=== PATIENT | female | born 1965 | race Caucasian/White ===

== ENCOUNTER 2022-01-03 14:34 | Emergency (ER) | payer OTHER ==
[~2022-01-03] VITALS: Ht 160 cm; Wt 90.9 kg
[~2022-01-03 14:34] MED LIST: ATOR40TA28 PO; FAMO20 PO; GABA-1216 PO; MIRALAX PO; MULT-29 PO
[2022-01-03] MEDS ORDERED: PANT40TA54 PO (16:48)
[2022-01-03] MEDS ORDERED: PARO30TA60 PO (16:48)
[2022-01-03] MEDS ORDERED: ASPI-1026 PO (16:48)
[2022-01-03] MEDS ORDERED: GABA600T10 PO (16:48)
[2022-01-03] MEDS ORDERED: MULT-248 PO (16:48)
[2022-01-03 17:39] VITALS: BP 138/97
[2022-01-03 17:52] LABS: APPEARANCE,URINE HAZY (CLEAR); BILIRUBIN,URINE NEGATIVE (NEGATIVE); GLUCOSE, URINE (UA) NEGATIVE (NEGATIVE); KETONES,URINE NEGATIVE (NEGATIVE); LEUKOCYTE ESTERASE ,URINE LARGE (NEGATIVE); NITRATE,URINE NEGATIVE (NEGATIVE); OCCULT BLOOD,URINE LARGE (NEGATIVE); PH,URINE 5.5 (5.0-8.0); PROTEIN,URINE 30-70 mg/dL (NEGATIVE); UROBILINOGEN,URINE <=1.0 mg/dL (<=1.0)
[2022-01-03 18:03] LABS: BACTERIA,URINE Rare /HPF (None Seen); RBC,URINE 26-50 /HPF (0-2); SQUAMOUS EPITHELIAL CELL,UR Few /LPF (None Seen); WBC,URINE 26-50 /HPF (0-5)
[2022-01-03] MEDS ORDERED: CEFP200T12 PO (18:06)
== END 2022-01-03 18:58 | disposition home or self-care (01) ==
LOC: EMS 14:43
DX: N39.0 Urinary tract infection, site not specified (principal); E78.00 Pure hypercholesterolemia, unspecified; F32.9 Major depressive disorder, single episode, unspecified; F41.9 Anxiety disorder, unspecified; K21.9 Gastro-esophageal reflux disease without esophagitis
CPT/HCPCS: 81001; 87086; 99283